=== PATIENT | female | born 1980 | race Hispanic/Latino ===

== ENCOUNTER → 2019-12-22 | Outpatient (CLI) | payer OTHER ==
--- NOTE | 2019-12-22 17:22 | Diagnostic Imaging Report ---
EXAMINATION: Transvaginal ultrasound. CLINICAL INDICATION: Excessive bleeding COMPARISON: none DISCUSSION: Transverse and sagittal transvaginal images were obtained of the pelvis with supplemental transabdominal images. Transvaginal necessary to evaluate the adnexa and endometrium. The uterus is anteverted and normal in size measuring 7.7 x 3.9 x 5.4 cm. The endometrial stripe is homogeneous, normal in thickness and measures 0.6 centimeters. Intramural fibroid measuring 2 x 2 x 2 cm and the left body. The ovaries are normal in size and echogenicity. The right ovary measures 2.5 x 1.7 x 1.9 centimeters. The left ovary measures 3.2 x 1.4 x 1.6 centimeters. Bilateral follicles measuring up to 1.2 cm. No free fluid IMPRESSION: 2 cm intramural fibroid, otherwise unremarkable ultrasound. Signed by: Dr. Chandana Rose M.D. on 12/22/2019 5:19 PM
== END ==
LOC: MAMMO 15:52
PROVIDERS: ATTEND Internal Medicine
DX: Z12.31 Encounter for screening mammogram for malignant neoplasm of breast (principal); N92.0 Excessive and frequent menstruation with regular cycle; D25.1 Intramural leiomyoma of uterus
CPT/HCPCS: 76830; 76857; 77067

== ENCOUNTER → 2020-01-12 | Outpatient (CLI) | payer OTHER ==
--- NOTE | 2020-01-13 08:10 | Diagnostic Imaging Report ---
#[id number] - USBRELIMRT ULTRASOUND OF THE RIGHT BREAST : 01/12/2020 Comparison is made to exams dated: 01/12/2020 mammogram and 12/22/2019 mammogram - [facility]. Color flow and real-time ultrasound were performed on the right breast. Crandall scale images of the real-time examination were reviewed. There is an benign 8 mm oval cyst with a smooth internal wall in the right breast at 12 o'clock posterior depth. This oval cyst is anechoic with a well-defined boundary and posterior acoustic enhancement. IMPRESSION: BENIGN There is no sonographic evidence of malignancy. The 8 mm oval cyst in the right breast is consistent with a simple cyst and is benign. A 1 year screening mammogram is recommended. WILLIAM viveros/bora:01/12/2020 16:41:17 Rotating Equipment Specialist: Sadie Simmons [facility], [facility] letter sent: Normal Exam Ultrasound BI-RADS: 2 Benign
--- NOTE | 2020-01-13 08:10 | Diagnostic Imaging Report ---
#[id number] - MGDXRT #UNILATERAL RIGHT DIGITAL DIAGNOSTIC MAMMOGRAM WITH SPOT COMPRESSION: 01/12/2020 Comparison is made to exam dated: 12/22/2019 mammogram - [facility]. The tissue of the right breast is heterogeneously dense. This may lower the sensitivity of mammography. There is an oval mass with a circumscribed margin in the right breast at 11 o'clock anterior depth. No other significant masses or calcifications are seen in the breast. IMPRESSION: INCOMPLETE: NEEDS ADDITIONAL IMAGING EVALUATION The oval mass in the right breast is indeterminate. An ultrasound is recommended and will be performed during the same visit as part of this diagnostic evaluation. Follow-up with ACR/ACS guidelines. WILLIAM ANDREWS M.D. kw/:01/12/2020 16:39:59 Track Repair Person: Angela LAWSON(R)(M), [facility] Mammogram BI-RADS: 0 Indeterminate
== END ==
LOC: MAMMO 13:41
PROVIDERS: ATTEND Internal Medicine
DX: N63.10 Unspecified lump in the right breast, unspecified quadrant (principal)